=== PATIENT | male | born 1970 | race Caucasian/White ===

== ENCOUNTER 2022-06-18 10:18 | Emergency (ER) | payer SELFPAY ==
[~2022-06-18] VITALS: Ht 172.7 cm; Wt 79.8 kg
[2022-06-18] MEDS ORDERED: LIDOCAINE HCL 2% 20 ML VIAL ONE (10:41)
[2022-06-18] MEDS ORDERED: IBUPROFEN 400 MG TABLET PO ONE (10:45)
[2022-06-18] MEDS ORDERED: TDAP DIPH,PERTUSS,TET VAC/PF 0.5 ML DISP.SYRIN IM ONE ×2 (10:45→10:53)
[2022-06-18] MEDS ORDERED: HYDROCODONE/APAP 5-325MG TABLET PO ONE (10:45)
[2022-06-18] MEDS ORDERED: IBUPROFEN 400 MG TABLET ONE (10:53)
[2022-06-18] MEDS ORDERED: HYDROCODONE/APAP 5-325MG TABLET ONE (10:53)
[2022-06-18] MEDS ORDERED: CEFAZOLIN 1 G in IV DEXTROSE 5% 50 ML IV ONE (11:30)
[2022-06-18] MEDS ORDERED: CEFAZOLIN 1 G VIAL ONE (11:35)
[2022-06-18] MEDS ORDERED: CEPH500C2 PO (12:22)
[2022-06-18 13:02] VITALS: BP 122/80
== END 2022-06-18 13:02 | disposition home or self-care (01) ==
LOC: ER 10:18
DX: S62.631B Displaced fracture of distal phalanx of left index finger, initial encounter for open fracture (principal); S62.623B Displaced fracture of middle phalanx of left middle finger, initial encounter for open fracture; Z79.899 Other long term (current) drug therapy; W18.39XA Other fall on same level, initial encounter; Y93.89 Activity, other specified; Y92.89 Other specified places as the place of occurrence of the external cause; Y99.8 Other external cause status
CPT/HCPCS: 73130; 90715; A4663; J0690; J3490